=== PATIENT | male | born 1995 | race Caucasian/White ===

== ENCOUNTER 2020-07-18 02:00 | Emergency (ER) | payer OTHER ==
[~2020-07-18] VITALS: Ht 175.3 cm; Wt 84.1 kg
[2020-07-18 02:15] VITALS: TEMP 98.4
[2020-07-18] MEDS ORDERED: NORCO 325 MG-51 TAB PO (02:42)
[2020-07-18 03:04] VITALS: BP 102/54; PULSE 82
== END 2020-07-18 03:04 | disposition home or self-care (01) ==
LOC: EDBD 02:00 → COL.ER 02:00
DX: S62.326A Displaced fracture of shaft of fifth metacarpal bone, right hand, initial encounter for closed fracture (principal); W22.8XXA Striking against or struck by other objects, initial encounter; Y93.89 Activity, other specified; Y92.009 Unspecified place in unspecified non-institutional (private) residence as the place of occurrence of the external cause